=== PATIENT | female | born 1990 | race African-American/Black ===

== ENCOUNTER 2018-10-20 10:48 | Emergency (ER) | payer SELFPAY ==
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
== END 2018-10-20 11:26 | disposition home or self-care (01) ==
LOC: ER 10:48
DX: M54.5 Low back pain (principal); R07.9 Chest pain, unspecified; V49.9XXA Car occupant (driver) (passenger) injured in unspecified traffic accident, initial encounter; F32.9 Major depressive disorder, single episode, unspecified; F31.9 Bipolar disorder, unspecified; K21.9 Gastro-esophageal reflux disease without esophagitis; Z88.6 Allergy status to analgesic agent; Z88.2 Allergy status to sulfonamides; Z72.0 Tobacco use